=== PATIENT | male | born 1985 | race Caucasian/White ===

== ENCOUNTER 2022-11-28 06:13 | Emergency (ER) | payer SELFPAY ==
[~2022-11-28] VITALS: Ht 172.7 cm; Wt 84.0 kg
[2022-11-28 06:16] VITALS: O2SAT 98
[2022-11-28 07:06] LABS: CHLORIDE 111 mEq/L (98-107)
[2022-11-28 07:13] LABS: ETHANOL BLOOD < 10 mg/dL (-10)
[2022-11-28 07:18] LABS: BASOPHILS % 0.3 % (0.0-2.0); EOSINOPHILS % 0.4 % (0.0-5.0); HEMATOCRIT. 46.3 % (42.0-52.0); HEMOGLOBIN. 15.8 g/dL (14.0-18.0); MEAN CORPUSCULAR HEMOGLOBIN 31.5 pg (28.0-32.0); MEAN CORPUSCULAR VOLUME 92.4 fL (80.0-94.0); MEAN PLATELET VOLUME 9.7 fl (7.4-10.4); MONOCYTES % 4.6 % (2.0-8.0); NEUTROPHILS % 65.7 % (40.0-76.0); PLATELET 218 x1000/uL (130-400); RED BLOOD CELL COUNT 5.01 mill/uL (4.7-6.1); RED CELL DISTRIBUTION WIDTH 13.4 % (11.6-14.6)
[2022-11-28 08:44] VITALS: BP 126/85; PULSE 100; RESP 16; TEMP 98.5
== END 2022-11-28 08:47 | disposition home or self-care (01) ==
LOC: ER 06:22
DX: R56.9 Unspecified convulsions (principal)
CPT/HCPCS: 36415; 80053; 80320; 85025; 99284; G0480